=== PATIENT | female | born 1995 | race Two or more races ===

== ENCOUNTER 2016-07-21 02:46 | Emergency (ER) | payer OTHER ==
[~2016-07-21] VITALS: Ht 157.5 cm; Wt 89.8 kg
[~2016-07-21 02:46] MED LIST: ALAVERT10 MG PO; COMPLETENATE T1 EACH PO; ELAVIL25 MG PO; FIORICET 50-301 EACH PO; FLAGYL500 MG PO; MEDROL DOSEPAK4 MG PO; MOBIC7.5 MG PO; MOTRIN600 MG PO; MOTRIN800 MG PO; NAPROSYN500 MG PO; NOHOMEMEDS; PROVENTIL HFA6.7 GM IH; ROBITUSSIN AC,T10 ML PO; ULTRAM50 MG PO; ZITHROMAX TRI-500 MG PO; ZOFRAN ODT4 MG PO
[2016-07-21 04:40] LABS: EOSINOPHIL (%) 0.3 % (0-5); EOSINOPHIL COUNT 0.1 K/uL (0-0.3); HEMATOCRIT 38.9 % (36.0-46.0); IMMATURE GRANULOCYTE (%) 0.3 % (0.0-0.7); IMMATURE GRANULOCYTE COUNT 0.4 K/uL; MCH 31.7 PG (29.0-34.0); MCHC 34.2 G/DL (30.0-36.0); MCV 92.6 FL (83-99); MEAN PLAT.VOLUME 9.9 uM^3 (9.5-12.4); MONOCYTE (%) 5.8 % (3-12); MONOCYTE COUNT 0.9 K/uL (0-0.8); NEUTROPHIL (%) 80.5 % (45-76); NEUTROPHIL COUNT 12.6 K/uL (1.8-6.4); PLATELET COUNT 330 K/uL (156-360); RBC DIS.WIDTH-CV 12.6 % (11.8-14.6); RBC DIS.WIDTH-SD 41.1 % (39-53); WHITE BLOOD COUNT 15.7 K/uL (4.1-10.2)
[2016-07-21 04:55] LABS: AMYLASE 56 IU/L (1-118); CHLORIDE 103 mEq/L (99-109); SODIUM 138 mEq/L (136-147)
[2016-07-21 04:57] LABS: GLUCOSE 105 mg/dL (70-99)
[2016-07-21 04:58] LABS: ANION GAP 9 MEQ/L (2-14)
[2016-07-21 05:00] LABS: GFR ESTIMATE (CALCULATED) > 59 mL/min/; SERUM ETHYL ALCOHOL < 10 mg/dL
[2016-07-21 05:01] LABS: UREA NITROGEN (BUN) 14 mg/dL (9-23)
[2016-07-21 05:03] LABS: LIPASE 12 U/L (1.0-51.0)
[2016-07-21 05:10] LABS: QUANTITATIVE HCG < 4.0 MIU/ML
[2016-07-21] MEDS ORDERED: PERCOCET 5/31 TABLET PO (05:47)
[2016-07-21 06:33] VITALS: BP 121/77
== END 2016-07-21 06:33 | disposition home or self-care (01) ==
LOC: TRA 02:46 → EME 02:46 → TRA 06:33
PROVIDERS: Emergency Medicine
PROC: 2W3CX1Z Immobilization of Right Lower Arm using Splint (ICD-10-PCS; principal; 2016-07-21)
DX: S02.2XXA Fracture of nasal bones, initial encounter for closed fracture (principal); S50.11XA Contusion of right forearm, initial encounter; M25.511 Pain in right shoulder; V49.50XA Passenger injured in collision with unspecified motor vehicles in traffic accident, initial encounter; F17.200 Nicotine dependence, unspecified, uncomplicated
CPT/HCPCS: 70450; 70486; 71260; 72125; 72129; 72132; 73090; 74177; 80048; 81003; 82150; 83690; 84702; 85025; 86850; 86900; 86901; 99281; 99285; G0480; J2405; J3010; J7030